=== PATIENT | female | born 1995 | race Caucasian/White ===

== ENCOUNTER 2022-11-05 11:46 | Emergency (ER) | payer OTHER ==
--- NOTE | 2022-11-05 12:34 | ED ---
General Adult HPI - General Chief complaint: Chest Pain Stated complaint: chest pain Time Seen by Provider: 11/05/22 12:14 Source: patient, EMS Mode of arrival: EMS Limitations: no limitations - History of Present Illness Initial comments: The patient is a 27-year-old female with a history of asthma and substance abuse presents emergency room for complaints of shortness of breath and pleuritic chest pain that lasted about 4 hours this morning. Patient is at [facility] where she is undergoing detox treatment from heroin and crack cocaine. She en tered the program 4 days ago. She states she has not used any drugs since. She is on a daily methadone regimen. She states that since getting to the emergency room her symptoms have resolved. She states that the tightness and pain feels similar to when she's had anxiety in the past. This is her 17th time and during this detox program. She has not had any withdrawal symptoms in the past. Emily hayden is currently undergoing treatment for an cellulitis of the left arm with Bactrim. She states it has improved since starting the medication 3 days ago. She denies any fevers. Denies any recent cough congestion, fever, recent travel, pain or slights her lower extremities, hemoptysis, history of DVT or PE. she currently is symptom free. - Related Data Allergies Allergy/AdvReac Type Severity Reaction Status Date / Time quetiapine [From Seroquel] Allergy Nausea & Verified 11/05/22 11:57 Vomiting zolpidem [From Ambien] Allergy Nausea & Verified 11/05/22 11:57 Vomiting Review of Systems ROS Statement: Those systems with pertinent positive or pertinent negative responses have been documented in the HPI. ROS Other: All systems not noted in ROS Statement are negative. Past Medical History Past Medical History: Asthma Additional Past Medical History / Comment(s): short QT, herpes, hepatitis C History of Any Multi-Drug Resistant Organisms: None Reported Past Surgical History: Tonsillectomy Additional Past Surgical History / Comment(s): DNC 2013 Past Psychological History: ADD/ADHD, Anxiety, Bipolar, PTSD Smoking Status: Current every day smoker Past Alcohol Use History: None Reported Past Drug Use History: Heroin, IV Drug Use General Exam Limitations: no limitations General appearance: alert, in no apparent distress Head exam: Present: atraumatic Eye exam: Present: normal appearance, PERRL Respiratory exam: Present: normal lung sounds bilaterally Cardiovascular Exam: Present: regular rate, normal rhythm Extremities exam: Present: full ROM Neurological exam: Present: alert, oriented X3 Psychiatric exam: Present: normal affect Skin exam: Present: other (Multiple superficial lesions and abrasions with open sores all over the chest, bilateral upper extremities and some healing lesions over the face. There is a healing abscess in the left antecubital fossa with no significant induration or erythema at this time. No drainage) Course Vital Signs 11/05/22 11/05/22 11:50 13:29 Temperature 98.5 F Pulse Rate 75 Respiratory 16 18 Rate Blood Pressure 125/79 O2 Sat by Pulse 100 Oximetry - Reevaluation(s) Reevaluation #1: 11/05/22 14:03 Patient is well-appearing emergency room. Patient's symptoms had resolved upon arrival into the emergency room and have not returned throughout her ED stay. She is feeling better at this time and eager to return back to [facility]. Discussed lab results with the patient. EKG is within normal limits and troponin is negative. Her symptoms recommend management with attending ED physician Dr. Rendon today. EKG Findings - EKG Comments: EKG Findings:: EKG shows sinus bradycardia at a rate of 57 bpm withnonspecific T-wave changes no acute ST segment elevation. Medical Decision Making - Medical Decision Making Was pt. sent in by a medical professional or institution (OMAIRA Dominguez, FELLER SEAM OPERATOR, urgent care, hospital, or [place] [facility] facility...) When possible be specific @ -[No] Did you speak to anyone other than the patient for history (EMS, parent, family, police, friend...)? What history was obtained from this source @ -[No] Did you review nursing and triage notes (agree or disagree)? Why? @ -[I reviewed and agree with nursing and triage notes] Were old charts reviewed (outside hosp., previous admission, EMS record, old EKG, old radiological studies, urgent care reports/EKG's, [place] [facility] records)? Report findings @ -[No old charts were reviewed] Differential Diagnosis (chest pain, altered mental status, abdominal pain women, abdominal pain men, vaginal bleeding, weakness, fever, dyspnea, syncope, headache, dizziness, GI bleed, back pain, seizure, CVA, palpatations, mental health, musculoskeletal)? @ -Anxiety, drug withdrawal, angina EKG interpreted by me (3pts min.). @ -EKG shows sinus bradycardia rate of 57 bpm with nonspecific T-wave changes, no acute ST segment elevation. X-rays interpreted by me (1pt min.). @ -[None done] CT interpreted by me (1pt min.). @ -[None done] U/S interpreted by me (1pt. min.). @ -[None done] What testing was considered but not performed or refused? (CT, X-rays, U/S, labs)? Why? @ -[None] What meds were considered but not given or refused? Why? @ -[None] Did you discuss the management of the patient with other professionals (professionals i.e. , PA, FELLER SEAM OPERATOR, lab, RT, psych nurse, group social worker, director of family service center, teacher, risk control officer, piano case maker)? Give summary @ -I discussed patient's symptoms and management with attending ED physician Dr. Rendon today. Was smoking cessation discussed for >3mins.? @ -[No] Was critical care preformed (if so, how long)? @ -[No] Were there social determinants of health that impacted care today? How? (Homelessness, low income, unemployed, alcoholism, drug addiction, transportation, low edu. Level, literacy, decrease access to med. care, fdc, rehab)? @ -Patient is admitted to [facility] for a substance abuse program. She entered 4 days ago this is her detox program. Was there de-escalation of care discussed even if they declined (Discuss DNR or withdrawal of care, Hospice)? DNR status @ -[No] What co-morbidities impacted this encounter? (DM, HTN, Smoking, COPD, CAD, Cancer, CVA, ARF, Chemo, Hep., AIDS, mental health diagnosis, sleep apnea, morbid obesity)? @ -Substance abuse Was patient admitted / discharged? Hospital course, mention meds given and route, prescriptions, significant lab abnormalities, going to OR and other pertinent info. @ -Patient's symptoms have resolved. She has not had any shortness breath, chest pain or pleuritic pain since getting to the emergency room. Her labs and EKG are within normal limits. She is stable to return to [facility] to [facility] detox program. She does not require admission at this time. Undiagnosed new problem with uncertain prognosis? @ -[No] Drug Therapy requiring intensive monitoring for toxicity (Heparin, Nitro, Insulin, Cardizem)? @ -[No] Were any procedures done? @ -[No] Diagnosis/symptom? @ -Anxiety reaction vs Drug withdrawal symptoms. Chest pain, resolved. Acute, or Chronic, or Acute on Chronic? @ -Acute Uncomplicated (without systemic symptoms) or Complicated (systemic symptoms)? @ -[default] Side effects of treatment? @ -[No] Exacerbation, Progression, or Severe Exacerbation? @ -[No] Poses a threat to life or bodily function? How? (Chest pain, [place], [place], pneumonia, PE, COPD, DKA, ARF, appy, cholecystitis, CVA, Diverticulitis, Homicidal, Suicidal, threat to staff... and all critical care pts) @ -[No] - Lab Data Result diagrams: 11/05/22 12:53 11/05/22 12:53 Lab Results 11/05/22 11/05/22 11/05/22 Range/Units 12:53 12:53 12:53 WBC 7.5 (3.8-10.6) k/uL RBC 4.37 (3.80-5.40) m/uL Hgb 13.0 (11.4-16.0) gm/dL Hct 41.4 (34.0-46.0) % MCV 94.7 (80.0-100.0) fL MCH 29.7 (25.0-35.0) pg MCHC 31.4 (31.0-37.0) g/dL RDW 15.1 (11.5-15.5) % Plt Count 224 (150-450) k/uL MPV 7.7 Neutrophils % 53 % Lymphocytes % 38 % Monocytes % 3 % Eosinophils % 2 % Basophils % 0 % Neutrophils # 4.0 (1.3-7.7) k/uL Lymphocytes # 2.9 (1.0-4.8) k/uL Monocytes # 0.2 (0-1.0) k/uL Eosinophils # 0.2 (0-0.7) k/uL Basophils # 0.0 (0-0.2) k/uL Sodium 138 (137-145) mmol/L Potassium 4.0 (3.5-5.1) mmol/L Chloride 105 (98-107) mmol/L Carbon Dioxide 23 (22-30) mmol/L Anion Gap 10 mmol/L BUN 12 (7-17) mg/dL Creatinine 0.59 (0.52-1.04) mg/dL Est GFR (CKD-EPI)AfAm >90 (>60 ml/min/1.73 sqM) Est GFR (CKD-EPI)NonAf >90 (>60 ml/min/1.73 sqM) Glucose 74 (74-99) mg/dL Calcium 8.6 (8.4-10.2) mg/dL Total Bilirubin 0.3 (0.2-1.3) mg/dL AST 23 (14-36) U/L ALT 20 (4-34) U/L Alkaline Phosphatase 64 (38-126) U/L Troponin I <0.012 (0.000-0.034) ng/mL Total Protein 6.8 (6.3-8.2) g/dL Albumin 3.7 (3.5-5.0) g/dL HCG, Quant <2.4 mIU/mL - EKG Data -: EKG Interpreted by Me Disposition Clinical Impression: Anxiety, Chest pain, Drug withdrawal Disposition: HOME SELF-CARE Condition: Good Instructions (If sedation given, give patient instructions): Opioid Withdrawal (ED), Polysubstance Abuse (ED), Anxiety (ED) Is patient prescribed a controlled substance at d/c from ED?: No Referrals: Nonstaff,Physician [Primary Care Provider] - 1-2 days Time of Disposition: 14:04
[2022-11-05 13:10] LABS: Basophils % (A) 0 %; Eosinophils # (A) 0.2 k/uL (0-0.7); Eosinophils % (A) 2 %; HCT 41.4 % (34.0-46.0); Lymphocytes # (A) 2.9 k/uL (1.0-4.8); Lymphocytes % (A) 38 %; MCH 29.7 pg (25.0-35.0); MCHC 31.4 g/dL (31.0-37.0); MCV 94.7 fL (80.0-100.0); Mean Platelet Volume 7.7; Monocytes # (A) 0.2 k/uL (0-1.0); Monocytes % (A) 3 %; Neutrophils % (A) 53 %; Platelet Count 224 k/uL (150-450); RBC 4.37 m/uL (3.80-5.40); RDW 15.1 % (11.5-15.5); WBC 7.5 k/uL (3.8-10.6)
[2022-11-05 13:24] LABS: ALT 20 U/L (4-34); AST 23 U/L (14-36); African American GFR (CKD) >90 (>60 ml/min/1.73 sqM); Albumin 3.7 g/dL (3.5-5.0); Alkaline Phosphatase 64 U/L (38-126); Anion Gap 10 mmol/L; Blood Urea Nitrogen 12 mg/dL (7-17); Calcium 8.6 mg/dL (8.4-10.2); Carbon Dioxide 23 mmol/L (22-30); Chloride 105 mmol/L (98-107); Glucose 74 mg/dL (74-99); Non-African American GFR(CKD) >90 (>60 ml/min/1.73 sqM); Sodium 138 mmol/L (137-145); Total Bilirubin 0.3 mg/dL (0.2-1.3); Total Protein 6.8 g/dL (6.3-8.2)
[2022-11-05 13:40] LABS: HCG,Quantitative Serum <2.4 mIU/mL
[2022-11-05 16:05] VITALS: BP 91/57; PULSE 68; RESP 18; TEMP 98.1
== END 2022-11-05 14:24 | disposition home or self-care (01) ==
LOC: EC 11:46
DX: F41.9 Anxiety disorder, unspecified (principal); F11.93 Opioid use, unspecified with withdrawal; R07.9 Chest pain, unspecified; J45.909 Unspecified asthma, uncomplicated; F17.200 Nicotine dependence, unspecified, uncomplicated; Z86.59 Personal history of other mental and behavioral disorders; R00.1 Bradycardia, unspecified
CPT/HCPCS: 36415; 80053; 84484; 84702; 85025; 93005; 99285